=== PATIENT | male | born 1970 | race Caucasian/White ===

== ENCOUNTER → 2024-05-27 12:43 | Outpatient (REF) | payer OTHER, SELFPAY | LOC: RAD 12:43 | PROVIDERS: ATTENDING PHYSICIAN Physician Assistant Medical; FAMILY PHYSICIAN Family Medicine | DX: R22.42 Localized swelling, mass and lump, left lower limb (principal) | CPT/HCPCS: 93971 ==

== ENCOUNTER 2025-01-26 10:18 | Day surgery (SDC) | payer OTHER, SELFPAY ==
[2025-01-12 08:52] VITALS: BMI 28.9
[2025-01-12 09:30] LABS: Hematocrit 41.0 % (39.0-52.0); Hemoglobin 14.8 g/dL (13.0-18.0); Mean Corp Hgb Conc. 36.1 g/dL (33.0-37.0); Mean Corpuscular Volume 87.2 fL (80.0-94.0); Nucleated Red Blood Cells % 0 % (-); Platelet Count 163 10^3/uL (130-400); Red Cell Dist. Width 11.6 % (11.5-14.5)
[2025-01-12 09:48] LABS: ALT (SGPT) 21 U/L (0-50); AST (SGOT) 20 U/L (17-59); Albumin 4.2 g/dl (3.5-5.0); Alkaline Phosphatase 66 U/L (38-126); Blood Urea Nitrogen 21 mg/dl (9-20); Calcium 9.1 mg/dl (8.4-10.2); Chloride 101 mmol/L (98-107); Estimated Creatinine Clearance 117 ml/min; Glucose 131 mg/dl (70-99); Potassium 4.2 mmol/L (3.5-5.1); Sodium 138 mmol/L (135-145); Total Protein 6.7 g/dl (6.3-8.2); eGFR > 60.00
[2025-01-12 09:56] LABS: Carbon Dioxide 31 mmol/L (22-30)
[2025-01-26 10:36] VITALS: BP 147/86
[2025-01-26 10:42] VITALS: BMI 28.0
--- NOTE | 2025-01-26 14:35 | ITS.CL.ABL ---
[employer] - Ablation
Ablation
Procedure Report:
Supra-Ventricular Tachycardia Ablation:
Mr. Diggs is a very pleasant�54 yr old gentleman with medical history significant for palpitations and was diagnosed with supra-ventricular tachycardia (SVT). He presented today to the EP lab for electrophysiology (EP) study of the heart and
possible ablation of the SVT.
Date of Procedure:
01/26/25
�
Indications: Supra-Ventricular Tachycardia (SVT)
�
Pre-Operative Diagnosis: Supra-Ventricular Tachycardia (SVT)
�
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
�
Procedure Performed: EP study and SVT ablation
�
Performing Physician:
Moe Mosley MD
�
Assistants:
EP staff
�
Anesthesia:
See anesthesia records
�
Detailed Description of the Procedure:
Written informed consent was obtained from the patient after a full explanation of the risks and benefits of the procedure including the risks of sedation and anesthesia. The patient was brought to the electrophysiology laboratory in stable
condition in fasting state. Continuous electrocardiographic and hemodynamic monitoring was initiated.
The initial rhythm was normal sinus.
The procedure site was meticulously prepared with surgical scrub and allowed to dry with no pooling. Sterile draping was applied to cover the procedure site. The image intensifier was draped with sterile bag and positioned over the patient.
Sheath and Catheter Placement:
After infusion of local anesthetic, vascular access was obtained under ultrasound guidance and sheaths were placed over guide wire as detailed below.
�
Sheaths:
- � � � 6 Fr sheath in right femoral vein
- � � � 7 Fr sheath in right femoral vein
- � � � 8 Fr that was later upgraded to Agilis sheath in right femoral vein
�
Catheters:
- 6Fr - Alyssa Quad-cath at RVa
- Bard Decapolar catheter - at locations of CS
- HD grid in right atrium, and RV
- Tacticath force sensing catheter in RA, CS and RV.
�
�Following the sheaths placement, patient was given Heparin bolus and EP study was done.
Baseline intervals (milliseconds):
PP interval (baseline cycle length): 788
P wave duration:126
VA interval:145
QRS duration: 134
QT interval: 400
�
P onset to HRA: 0
P onset to AVJ: 40
AH interval: 85
His duration: 18
HV interval: 45
Q onset to RVa: 0
��
Sinus Node Function:
HRA pacing showed adequate threshold. The sinus node functions are within acceptable normal range.
�
Atrioventricular Jimy Function:
Atrial stimulation with incremental pacing intervals was performed from the high right atrium (HRA) and right ventricular apex (RVa) and antegrade and retrograde atrioventricular (AV) block cycle lengths were determined. The antegrade AV Wenckebach
was noted at 420 msec.
�
Programmed atrial stimulation was performed with drive train of 600 msec followed by a single atrial extra-stimulus and the AV jimy and the atrial ERPs were determined. The AV jimy ERP was <550/280 msec and the atrial ERP was 550/280msec.
There was normal decremental conduction noted through the AV node. The programmed stimuli showed a clear AH jump with the evidence of dual AV jimy physiology. The fast pathway ERP was 600/300 msec and the slow pathway ERP was 600/280.
�
Ventricular stimulation showed normal retrograde conduction. .
The AV jimy functions are deemed within normal range with physiologic dual pathway conduction.
�
Ventricular Function:
Single ventricular extrastimuli showed V conduction was normal with AV ERP <600/280 msec. The ventricular electrical functions are within acceptable range.
�
SVT Arrhythmia Induction:
Programmed stimulation including single, extrastimuli were delivered from the high right atrium and the proximal coronary sinus location following the drive trains at 600 ms.
The programmed stimulation was able to generate SVT consistently. The tachycardia was though easily inducible was short lived.
The sustained SVT was induced at CL of 370 ms.
Tachycardia:
The tachycardia was studies with a cycle length of 370 msec. The tachycardia was concentric and had short VA time. The tachycardia was entrained from the ventricle and the proximal CS. The ventricle was out of the tachycardia cycle and attempt from
the entrainment from CS maneuver terminated the tachycardia. Following observations were noted. �
a)�Simultaneous A and V (Septal VA interval of <70 ms was at 47msec).�
b) Ventricular Overdrive pacing demonstrated a VAHV�response�
c) SA-VA >85 (191 � 47)
d) PPI-TCL >115msec (348 msec)
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
The tachycardia once induced was easily inducible by simply moving the catheter in the annulus area. The RV entrainment again confirmed the diagnosis of AVNRT.
Electroanatomic 3D Mapping (EAM) and Ablation:
Patient was given Heparin bolus. EAM and radiofrequency ablation was performed using HD grid and [employer] radiofrequency ablation catheter. 3D mapping was performed with [employer] EP system software. Cardiac anatomy as established. His cloud was
established. The triangle of Noel was marked with ablation catheter.
A slow pathway AVNRT ablation was pursued. Radiofrequency ablation lesions were applied to the anatomic slow pathway area targeting spike and dome electrograms with > 1:7 A:V ratio just below the His cloud. There were only occasional Junctional
beats with 1:1 VA relationship noted. There was no non-conducted beat.
Post Ablation EP study:
The post ablation EP study showed normal AV conduction. The VA was 145msec; QRS was 134msec; AH was 85msec with HV of 45msec. There was no sign of AV block noted.
There was decremental conduction noted via the AV node. There was no jump present. No tachycardia was inducible now.
Procedure End
Following the completion of the EP study, catheters were removed. The sheaths were removed and hemostasis achieved with placement of �VASCADE� and manual compression.
Recommendations:
? Likely discharge home today.
? No change in home medications.
�
Estimated Blood loss:
<5 cc
�
Specimens Removed:
None.
�
Implants / Devices:
None
�
Urine output:
None
�
Packs / Drains/ Tubes:
None
�
Instrument / Sponge Count Correct:
Yes
�
Complications of the Procedure:
None
�
Condition of Patient at Time of Transfer:
Hemodynamically stable with no neurological or vascular compromise.
�
Flouro time:
0
Summary:
Electrophysiology study with induction of atrioventricular jimy re-entrant tachycardia (AVNRT) and successful modification of slow pathway.
(EP study, SVT ablation, 3D mapping, drug testing)
== END 2025-01-26 17:22 | disposition home or self-care (01) ==
LOC: CATH 10:18
PROVIDERS: ATTENDING PHYSICIAN Internal Medicine Cardiovascular Disease; FAMILY PHYSICIAN Family Medicine; OTHER PHYSICIAN Internal Medicine
DX: I47.19 Other supraventricular tachycardia (principal); E78.5 Hyperlipidemia, unspecified; I45.10 Unspecified right bundle-branch block; Z79.899 Other long term (current) drug therapy; Z87.891 Personal history of nicotine dependence; I47.20 Ventricular tachycardia, unspecified; I49.8 Other specified cardiac arrhythmias; Z90.49 Acquired absence of other specified parts of digestive tract
CPT/HCPCS: C1732; C1730 ×2; C1894; C1766; C1760; 36415; 80053; 85025; 93005; 93653